=== PATIENT | female | born 1940 | race Caucasian/White ===

== ENCOUNTER 2018-08-02 12:51 | Inpatient (IN) | payer OTHER ==
[~2018-08-02] VITALS: Ht 160 cm; Wt 85.7 kg
[~2018-08-02 12:51] MED LIST: ADVAIR 250-501 EACH INH; ADVAIR 500-501 EACH INH; ALBUTEROL2.5 MG/32 IH; ASPIRIN EC81 M1 PO; ASPIRIN325 PO; ATENOLOL 50MG T50 M1 PO; ATIVAN0.5 MG PO; CENTRUM SILVER1 EAC4 PO; COZAAR 25 MG TA25 M2 PO; DEMADEX20 MG PO; DIGOXIN250 MCG PO; DUONEB 2.5-0.5 M3 ML INH; EFFIENT10 MG PO; ELIQUIS2.5 MG PO; FERROUS SULFAT325 MG PO; FLEXERIL PO; LASIX 40 MG TAB40 M2 PO; LEVAQUIN 500 M500 M2 PO; LIPITOR10 MG PO; LISINOPRIL5 MG PO; LOPRESSOR50 MG PO; MAXZIDE-25 MG1 EACH PO; METHOCARBAMOL500 M2 PO; MIRALAX17 GM PO; MUCINEX600 MG PO; MULTAQ 400 MG400 MG PO; POTASSIUM20 PO; PROAIR HFA8.5 GM INH; SIMVASTATIN20 MG PO; SINGULAIR 10 MG10 MG PO; SORINE 80 MG TA80 M1 PO; VITAMIN D5000 UNIT PO; XARELTO20 MG PO
[2018-08-02 12:52] VITALS: BP 182/63
--- NOTE | 2018-08-02 13:20 | NUR ---
PT BEING MOVED TO ROOM 23 TO GET STARTED.
[2018-08-02] MEDS ORDERED: ONDANSETRON HCL4 M2 PO (13:49)
[2018-08-02] MEDS ORDERED: SYMBICORT160 MCG/4. INH (13:50)
[2018-08-02 14:34] LABS: URINE BLOOD NEGATIVE (Negative); URINE CLARITY CLEAR; URINE COLOR YELLOW; URINE GLUCOSE-RANDOM* NEGATIVE (Negative); URINE KETONES NEGATIVE (Negative); URINE LEUKOCYTES-REFLEX NEGATIVE (Negative); URINE NITRITE-REFLEX NEGATIVE (Negative); URINE PROTEIN (DIPSTICK) NEGATIVE (Negative); URINE SPECIFIC GRAVITY >= 1.030 (1.005-1.035); URINE UROBILINOGEN 0.2 E.U./dl (0.2-1.0)
[2018-08-02 14:35] LABS: ICTOTEST (BILI CONFIRMATORY) Negative (Negative); URINE BILIRUBIN NEGATIVE (Negative)
[2018-08-02 15:22] LABS: HEMATOCRIT 44.8 % (37.0-47.0); HEMOGLOBIN 14.7 gm/dL (12.0-15.0); MCH 28.9 pg (26.0-34.0); MCHC 32.8 g/dL (28.0-37.0); MCV 88.1 fL (80.0-100.0); PLATELET COUNT 186 thou/uL (150-400); RBC 5.09 mil/uL (4.20-5.00); RDW 16.5 % (10.5-14.5); WBC 27.1 thou/uL (4.0-11.0)
[2018-08-02 15:31] LABS: ANION GAP 8 mmol/L (7-16); BUN 34 mg/dL (7-18); CALCIUM 9.8 mg/dL (8.5-10.1); CHLORIDE 105 mmol/L (98-107); CO2 28 mmol/L (21-32); CREATININE 1.3 mg/dL (0.6-1.0); GLUCOSE 120 mg/dL (74-106); POTASSIUM 4.1 mmol/L (3.5-5.1); SODIUM 141 mmol/L (136-145)
[2018-08-02 15:35] LABS: APTT 25.8 Seconds (24.5-32.8); PROTIME 10.6 Seconds (9.3-11.4)
[2018-08-02 15:41] LABS: ALBUMIN 3.7 g/dL (3.4-5.0); LIPASE 366 U/L (73-393); MAGNESIUM 2.2 mg/dL (1.8-2.4); SGOT 27 U/L (15-37); SGPT 26 U/L (30-65); TOTAL BILIRUBIN 0.6 mg/dL (<0.1-1.0); TOTAL PROTEIN 7.1 g/dL (6.4-8.2); TROPONIN-I <0.06 ng/mL (<0.06)
[2018-08-02 15:43] LABS: ABSOLUTE NEUTROPHILS 11.7 thou/uL (1.4-8.2); ATYPICAL LYMPHS 5 %; PLATELET ESTIMATE NORMAL
[2018-08-02] MEDS ORDERED: ALBUTEROL2.5 MG/31 INH (15:56)
[2018-08-02] MEDS ORDERED: SPIRIVA INH (15:56)
[2018-08-02] MEDS ORDERED: VITAMIN D5000 UNIT PO (15:56)
[2018-08-02] MEDS ORDERED: SYNTHROID50 MCG PO (15:57)
[2018-08-02] MEDS ORDERED: DIOVAN320 MG PO (16:02)
[2018-08-02] MEDS ORDERED: LEXAPRO20 MG PO (16:02)
[2018-08-02 16:12] VITALS: BP 132/69
[2018-08-02 16:52] VITALS: BP 136/70
--- NOTE | 2018-08-02 17:16 | EKG ---
[address] [address] ELECTROCARDIOGRAM REPORT Name: LIANG CAMARAN Room #: 453-P ADM IN M.R.#: [id number] Admission: 08/02/18 Attend Phys: Keshav Dwyer MD Discharge: Date of : 36 Report #: [id number] THIS REPORT FOR: //name// [facility] ED Test Date: 2018-08-02 Test Time: 13:33:11 Pat Name: LIANG CAMARA Department: Room: [facility] Gender: F Color Strainer: ROBIN : 1940 Requested By: Hernando Schulz Order Number: [id number] MD: Holden Colindres Measurements Intervals [place] Rate: 81 P: MS: QRS: 269 QRSD: 140 T: 71 QT: 434 QTc: 504 Interpretive Statements Atrial-sensed ventricular-paced complexes No further analysis attempted due to paced rhythm Compared to ECG 07/05/2015 09:11:19 Atrial fibrillation no longer present Electronically Signed On 08-02-2018 17:16:16 DRY HOUSE TENDER by Holden Colindres [email or web address] <ELECTRONICALLY SIGNED> By: Holden Colindres MD 08/02/18 1716 1333 1333 Holden Colindres MD /EPI
[2018-08-02 17:28] VITALS: BP 141/71
--- NOTE | 2018-08-02 18:14 | NUR ---
ADMITTED FROM ER UNDER 'S CARE. ADMITTED WITH NAUSEA, VOMITING, DIARRHEA. UNDER ISO FOR SPECIAL CONTACT. NO MORE N/V/D WHEN ARRIVED ON UNIT. AXOX4. FALL PRECAUTION INITIATED. IVF 125ML/HR ON CLEAR LIQUID DIET. WHEEZES AND ON BREATHING TX. SKIN INTACT. PACEMAKER. TELE MONITORING INITATED. DENIES ANY PAIN AT THIS POINT. UMBILICAL HERNIA. NO S/S ACUTE DISTRESS NOTED OR REPORTED AT THIS TIME. WILL CONT TO MONITOR FOR ANY CHANGES IN CONDITON.
[2018-08-03 04:00] VITALS: BP 131/65
--- NOTE | 2018-08-03 07:17 | NUR ---
PROGRESS PT SLEPT MOST OF NIGHT. IV FLUIDS INFUSING WITHOUT DIFFICULTY.TOLERATING CLEAR LIQUID DIET ATE ICELANDIC ICE AND JELLO AND A SMALL AMOUNT OF BROTH. CONTINUE TO MONITOR ADVANCE DIET TOLERATED AWAITING STOOL SAMPLE.
[2018-08-03 07:40] VITALS: BP 133/68
[2018-08-03 11:00] LABS: HEMATOCRIT 39.7 % (37.0-47.0); HEMOGLOBIN 12.9 gm/dL (12.0-15.0); MCH 28.5 pg (26.0-34.0); MCHC 32.6 g/dL (28.0-37.0); MCV 87.6 fL (80.0-100.0); RBC 4.53 mil/uL (4.20-5.00); RDW 15.8 % (10.5-14.5)
[2018-08-03 11:36] LABS: CALCIUM 8.6 mg/dL (8.5-10.1); CREATININE 1.3 mg/dL (0.6-1.0); POTASSIUM 3.9 mmol/L (3.5-5.1); TOTAL BILIRUBIN 0.6 mg/dL (<0.1-1.0); TOTAL PROTEIN 5.8 g/dL (6.4-8.2)
[2018-08-03 12:25] VITALS: BP 133/68
--- NOTE | 2018-08-03 13:02 | NUR ---
pt stable throughout shift. pt discharged home. pt left unit via wheelchair to private vehicle.
== END 2018-08-03 13:57 | disposition home or self-care (01) | DRG 683 ==
LOC: ER 12:51 → 4W 15:50 → EROBS 15:50 → 4W 16:51 → ENTRNSPT 08-03 12:44 → EDTRNSPTSTS 08-03 12:46 → 4W 08-03 13:57
PROVIDERS: Emergency Medicine; ADMIT Family Medicine
DX: N17.9 Acute kidney failure, unspecified (principal); C91.10 Chronic lymphocytic leukemia of B-cell type not having achieved remission; K52.9 Noninfective gastroenteritis and colitis, unspecified; N18.9 Chronic kidney disease, unspecified; I12.9 Hypertensive chronic kidney disease with stage 1 through stage 4 chronic kidney disease, or unspecified chronic kidney disease; E78.5 Hyperlipidemia, unspecified; J44.9 Chronic obstructive pulmonary disease, unspecified; I48.91 Unspecified atrial fibrillation; I25.10 Atherosclerotic heart disease of native coronary artery without angina pectoris; J45.909 Unspecified asthma, uncomplicated; F41.9 Anxiety disorder, unspecified; E86.0 Dehydration; W18.30XA Fall on same level, unspecified, initial encounter; Y92.89 Other specified places as the place of occurrence of the external cause; Y99.8 Other external cause status; Z88.0 Allergy status to penicillin; Z88.2 Allergy status to sulfonamides; Z88.8 Allergy status to other drugs, medicaments and biological substances; Z90.49 Acquired absence of other specified parts of digestive tract; Y93.89 Activity, other specified; Z88.6 Allergy status to analgesic agent; Z79.51 Long term (current) use of inhaled steroids; Z87.891 Personal history of nicotine dependence; Z79.899 Other long term (current) drug therapy; Z88.1 Allergy status to other antibiotic agents; Z91.040 Latex allergy status
CPT/HCPCS: 10045

== ENCOUNTER → 2018-10-10 | Outpatient (CLI) | payer OTHER ==
[~2018-10-10] MED LIST changes: +ALBUTEROL2.5 MG/31 INH; +DIOVAN320 MG PO; +LEXAPRO20 MG PO; +ONDANSETRON HCL4 M2 PO; +SPIRIVA INH; +SYMBICORT160 MCG/4. INH; +SYNTHROID50 MCG PO
== END ==
LOC: RAD 15:26
DX: J44.9 Chronic obstructive pulmonary disease, unspecified (principal); G47.19 Other hypersomnia; R53.83 Other fatigue; R06.83 Snoring; Z87.891 Personal history of nicotine dependence; Z77.120 Contact with and (suspected) exposure to mold (toxic); Z88.8 Allergy status to other drugs, medicaments and biological substances; Z88.1 Allergy status to other antibiotic agents; Z88.2 Allergy status to sulfonamides; Z91.011 Allergy to milk products; Z88.0 Allergy status to penicillin

== ENCOUNTER 2018-11-04 07:12 | Inpatient (IN) | payer OTHER ==
[2018-11-04] VITALS (14 sets, daily range): BP systolic 145–205; BP diastolic 50–114
[~2018-11-04] VITALS: Ht 162.6 cm; Wt 81.7 kg
[2018-11-04 07:45] LABS: BE(vivo) -3.9 mmol/L (-2 to +3); HCO3 20.8 mmol/L (22.0-26.0); PCO2 36.9 mmHg (35.0-45.0); PO2 80.3 mmHg (80.0-100.0); pH 7.368 (7.360-7.450); sO2 95.6 % (92.0-98.0)
[2018-11-04 09:56] LABS: HEMATOCRIT 42.6 % (37.0-47.0); HEMOGLOBIN 13.6 gm/dL (12.0-15.0); MCH 28.2 pg (26.0-34.0); MCV 88.2 fL (80.0-100.0); PLATELET COUNT 203 thou/uL (150-400); RBC 4.82 mil/uL (4.20-5.00); RDW 15.3 % (10.5-14.5); WBC 17.1 thou/uL (4.0-11.0)
[2018-11-04 10:04] LABS: ANION GAP 9 mmol/L (7-16); BUN 18 mg/dL (7-18); CALCIUM 9.4 mg/dL (8.5-10.1); CHLORIDE 101 mmol/L (98-107); CO2 28 mmol/L (21-32); CREATININE 1.4 mg/dL (0.6-1.0); GLUCOSE 128 mg/dL (74-106); POTASSIUM 4.7 mmol/L (3.5-5.1); SODIUM 138 mmol/L (136-145)
[2018-11-04 10:12] LABS: TROPONIN-I <0.06 ng/mL (<0.06)
[2018-11-04 10:54] LABS: ABSOLUTE NEUTROPHILS 10.9 thou/uL (1.4-8.2); PLATELET ESTIMATE NORMAL
[2018-11-04 20:31] LABS: BE(vivo) 2.8 mmol/L (-2 to +3); HCO3 28.1 mmol/L (22.0-26.0); PCO2 45.7 mmHg (35.0-45.0); PO2 139.6 mmHg (80.0-100.0); pH 7.406 (7.360-7.450); sO2 98.8 % (92.0-98.0)
[2018-11-05] VITALS (24 sets, daily range): BP systolic 75–189; BP diastolic 52–93
[2018-11-05 10:03] LABS: MCH 28.3 pg (26.0-34.0); MCHC 32.5 g/dL (28.0-37.0); RBC 4.59 mil/uL (4.20-5.00); RDW 15.3 % (10.5-14.5); WBC 15.8 thou/uL (4.0-11.0)
[2018-11-05 10:15] LABS: CALCIUM 8.8 mg/dL (8.5-10.1); CREATININE 1.6 mg/dL (0.6-1.0); POTASSIUM 3.9 mmol/L (3.5-5.1)
[2018-11-06] VITALS (16 sets, daily range): BP systolic 106–164; BP diastolic 39–78
[2018-11-06 05:18] LABS: HEMATOCRIT 39.6 % (37.0-47.0); MCH 28.6 pg (26.0-34.0); MCHC 32.8 g/dL (28.0-37.0); MCV 87.1 fL (80.0-100.0); RBC 4.54 mil/uL (4.20-5.00); RDW 15.8 % (10.5-14.5)
[2018-11-06 05:28] LABS: CALCIUM 8.7 mg/dL (8.5-10.1); CREATININE 1.5 mg/dL (0.6-1.0); POTASSIUM 4.4 mmol/L (3.5-5.1)
[2018-11-06 08:18] LABS: BE(vivo) 8.8 mmol/L (-2 to +3); PCO2 48.9 mmHg (35.0-45.0); PO2 86.2 mmHg (80.0-100.0); sO2 96.9 % (92.0-98.0)
--- NOTE | 2018-11-06 22:27 | EKG ---
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 : 1940 Requested By: Abdias Tijerina Order Number: [id number] MD: Holden Colindres Measurements Intervals [place] Rate: 80 P: 0 GA: 44 QRS: -86 QRSD: 153 T: 56 QT: 434 QTc: 501 Interpretive Statements Sinus rhythm Short GA interval RBBB and LAFB Electronically Signed On 11-06-2018 22:27:18 CDT by Holden Colindres [email or web address] ��������������������������������������������� <ELECTRONICALLY SIGNED> ���������������������������������������� By: Holden Colindres MD ��������������������������������������������� 11/06/18 2227 0728 07 Holden Colindres MD /MYRON
[2018-11-07 01:00] VITALS: BP 153/75
[2018-11-07 04:00] VITALS: BP 150/68
[2018-11-07 04:13] LABS: CALCIUM 8.2 mg/dL (8.5-10.1); CREATININE 1.6 mg/dL (0.6-1.0); POTASSIUM 4.4 mmol/L (3.5-5.1)
[2018-11-07 08:00] VITALS: BP 150/66
[2018-11-07 12:20] VITALS: BP 139/73
[2018-11-07 16:00] VITALS: BP 138/71
[2018-11-07 20:00] VITALS: BP 136/78
[2018-11-08 04:00] VITALS: BP 178/82
[2018-11-08 08:19] VITALS: BP 127/83
[2018-11-08 15:16] VITALS: BP 126/44
[2018-11-08 19:49] VITALS: BP 151/85
[2018-11-09 04:47] VITALS: BP 162/81
[2018-11-09] MEDS ORDERED: IPRAT-ALBUT 0.5-3 ML INH (07:54)
[2018-11-09] MEDS ORDERED: PREDNISONE 20 M20 M1 PO (07:56)
[2018-11-09 07:58] VITALS: BP 191/79
[2018-11-09] MEDS ORDERED: LEVAQUIN 500 M500 M3 PO (07:59)
[2018-11-09 09:57] VITALS: BP 191/79
[2018-11-09 11:09] VITALS: BP 172/72
[2018-11-09 12:50] VITALS: BP 191/79
== END 2018-11-09 13:23 | disposition home health service (06) | DRG 871 ==
LOC: ER 07:12 → 2N 10:24 → EROBS 10:24 → ICU 12:34 → 2N 11-06 19:03
PROVIDERS: Emergency Medicine; Pediatrics; ADMIT Family Medicine
PROC: 5A09357 Assistance with Respiratory Ventilation, Less than 24 Consecutive Hours, Continuous Positive Airway Pressure (ICD-10-PCS; principal; 2018-11-04)
PROC: 02HV33Z Insertion of Infusion Device into Superior Vena Cava, Percutaneous Approach (ICD-10-PCS; principal; 2018-11-04)
PROC: 5A09357 Assistance with Respiratory Ventilation, Less than 24 Consecutive Hours, Continuous Positive Airway Pressure (ICD-10-PCS; 2018-11-05)
PROC: 5A09357 Assistance with Respiratory Ventilation, Less than 24 Consecutive Hours, Continuous Positive Airway Pressure (ICD-10-PCS; 2018-11-06)
PROC: 5A09357 Assistance with Respiratory Ventilation, Less than 24 Consecutive Hours, Continuous Positive Airway Pressure (ICD-10-PCS; 2018-11-07)
PROC: 5A09357 Assistance with Respiratory Ventilation, Less than 24 Consecutive Hours, Continuous Positive Airway Pressure (ICD-10-PCS; 2018-11-08)
PROC: 5A09357 Assistance with Respiratory Ventilation, Less than 24 Consecutive Hours, Continuous Positive Airway Pressure (ICD-10-PCS; 2018-11-09)
DX: A41.9 Sepsis, unspecified organism (principal); J18.9 Pneumonia, unspecified organism; J96.21 Acute and chronic respiratory failure with hypoxia; J96.22 Acute and chronic respiratory failure with hypercapnia; J44.0 Chronic obstructive pulmonary disease with (acute) lower respiratory infection; J44.1 Chronic obstructive pulmonary disease with (acute) exacerbation; N17.9 Acute kidney failure, unspecified; J45.901 Unspecified asthma with (acute) exacerbation; I13.0 Hypertensive heart and chronic kidney disease with heart failure and stage 1 through stage 4 chronic kidney disease, or unspecified chronic kidney disease; E66.9 Obesity, unspecified; Z79.84 Long term (current) use of oral hypoglycemic drugs; I48.91 Unspecified atrial fibrillation; I25.10 Atherosclerotic heart disease of native coronary artery without angina pectoris; F41.9 Anxiety disorder, unspecified; N18.9 Chronic kidney disease, unspecified; F31.9 Bipolar disorder, unspecified; E78.00 Pure hypercholesterolemia, unspecified; E11.22 Type 2 diabetes mellitus with diabetic chronic kidney disease; E78.5 Hyperlipidemia, unspecified; I11.0 Hypertensive heart disease with heart failure; Z95.5 Presence of coronary angioplasty implant and graft; Z85.72 Personal history of non-Hodgkin lymphomas; Z90.49 Acquired absence of other specified parts of digestive tract; Z98.41 Cataract extraction status, right eye; Z98.42 Cataract extraction status, left eye; Z88.0 Allergy status to penicillin; Z88.2 Allergy status to sulfonamides; Z88.8 Allergy status to other drugs, medicaments and biological substances; Z88.1 Allergy status to other antibiotic agents; Z91.040 Latex allergy status; Z85.6 Personal history of leukemia; Z87.891 Personal history of nicotine dependence; Z79.01 Long term (current) use of anticoagulants; Z68.30 Body mass index [BMI] 30.0-30.9, adult
CPT/HCPCS: 10078; 10081

== ENCOUNTER → 2018-11-11 | Outpatient (CLI) | payer OTHER ==
[~2018-11-11] MED LIST changes: +IPRAT-ALBUT 0.5-3 ML INH; +LEVAQUIN 500 M500 M3 PO; +PREDNISONE 20 M20 M1 PO
--- NOTE | 2018-11-14 11:01 | SLE ---
[facility] [place] [address] POLYSOMNOGRAPHY STUDY Name: LIANG CAMARA Room #: REG [facility]#: [id number] Admission: 11/11/18 ������������������ Attend Phys: Ayush Partida MD Discharge: ������������������ Date of : 36 Report #: [id number] THIS REPORT FOR: //name// CC: Ayush Thomas MD DATE OF SERVICE: 11/11/2018 ATTENDING PHYSICIAN: Dr. Roderick Thomas. The patient is 78 years old who weighs 180 pounds with a BMI of 30.9. The patient's Ulysses score was 11. The patient underwent diagnostic sleep study performed at [facility]. During the night study, the patient spent 462 minutes in bed and slept for 243 minutes with a low sleep efficiency of 52.6%. The patient has chronic back pain, which may account for poor sleep efficiency. Sleep latency was 35.3 minutes with an absent REM sleep. Overall, sleep architecture showed increased stage 1 and stage 2 sleep with absent N3 sleep and absent REM sleep. During the night study, the patient had no apneas and 8 hypopneas. The patient's apnea-hypopnea index for the entire night was 2 per hour. REM sleep was not observed and supine index was 4.8 per hour. EKG monitoring revealed a paced rhythm. Average heart rate 85 beats per minute. No sustained arrhythmias observed. PLMS were seen at an index of 35 per hour and 3.9 per hour caused EEG arousals. Nocturnal oximetry study revealed an average oxygen saturation of 89% with the lowest of 85%. 107 minutes were spent in oxygen saturation of less than 89%. The pattern was suggesting hypoventilation. Due to low AHI, the patient did not meet the split night criteria for CPAP initiation. IMPRESSION: 1. No clinically significant sleep disordered breathing. The patient's AHI for the entire night was 2 per hour. 2. 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 If this is a chronic condition then it can account for the patient's subjective hypersomnia. 3. Abnormal nocturnal oximetry study suggesting hypoventilation. 4. Abnormal EKG with a paced rhythm. [facility] [address] [place] [address] POLYSOMNOGRAPHY STUDY Name: LIANG CAMARA Room #: REG [facility]#: [id number] Admission: 11/11/18 ������������������ Attend Phys: Ayush Partida MD Discharge: ������������������ Date of : 36 Report #: [id number] RECOMMENDATIONS: 1. The patient did not meet the criteria for CPAP initiation. 2. The patient's insomnia should be further evaluated and treated according to the etiology. 3. Consider supplemental oxygen at 1 liter or do an outpatient nocturnal oximetry study to assess for nocturnal use of oxygen. 4. Weight loss is advised to the ideal body weight. 5. Caution regarding driving until the patient's hypersomnia is resolved with the above recommendations. ��������������������������������������������� <ELECTRONICALLY SIGNED> ���������������������������������������� By: Ayush Partida MD ��������������������������������������������� 11/14/18 1101 1830 2137 Ayush Partida MD /nt
== END ==
LOC: SLEEPLAB 10:08
DX: G47.33 Obstructive sleep apnea (adult) (pediatric) (principal); R94.31 Abnormal electrocardiogram [ECG] [EKG]; G47.00 Insomnia, unspecified; I10 Essential (primary) hypertension; E11.9 Type 2 diabetes mellitus without complications; J44.9 Chronic obstructive pulmonary disease, unspecified; I48.91 Unspecified atrial fibrillation; E78.5 Hyperlipidemia, unspecified; Z87.891 Personal history of nicotine dependence; Z68.30 Body mass index [BMI] 30.0-30.9, adult

== ENCOUNTER → 2019-01-26 | Outpatient (CLI) | payer OTHER | LOC: RAD 07:37 | DX: J44.9 Chronic obstructive pulmonary disease, unspecified (principal); I51.7 Cardiomegaly; M47.814 Spondylosis without myelopathy or radiculopathy, thoracic region; M48.54XA Collapsed vertebra, not elsewhere classified, thoracic region, initial encounter for fracture ==

== ENCOUNTER → 2019-03-03 | Outpatient (CLI) | payer OTHER ==
--- NOTE | 2019-03-03 12:36 | 2DMMODE ---
[facility] [place] [facility] [place] [address] 2 D/M-MODE ECHOCARDIOGRAM Name: LIANG CAMAAR Room #: REG [facility]#: [id number] ������������� Admission: 03/03/19 ������������� Attend Phys: Holden Colindres Discharge: ��� ������������� ��� Date of : 36 Date of Service: 03/03/19 1236 �� Report #: [id number] �������� ��������������������������������������������[id number] THIS REPORT FOR: //name// APPROVED REPORT Study performed: 03/03/2019 10:00:41 EXAM: Comprehensive 2D, Doppler, and color-flow Echocardiogram Patient Location: Out-Patient Status: routine BSA: 1.90 HR: 82 bpm BP: 154/74 mmHg Rhythm: Atrial Fibrillation Other Information Study Quality: Adequate Technically limited study due to COPD, obesity. Indications Short of breath. Hx: Afib, pacemaker, CAD, stent. 2D Dimensions RVDd: 32.54 mm IVSd: 12.15 (7-11mm) LVOT Diam: 19.36 (18-24mm) LVDd: 48.53 mm PWd: 12.11 (7-11mm) Ascending Ao: 32.81 (22-36mm) LVDs: 36.32 (25-40mm) Aortic Root: 33.05 mm Volumes Left Atrial Volume (Systole) Single Plane 4CH: 63.65 mL Single Plane 2CH: 71.60 mL LA ESV Index: 40.00 mL/m2 Aortic Valve AoV Peak Valentin.: 1.75 m/s AO Peak Gr.: 12.18 mmHg LVOT Max P.15 mmHg AO Mean Gr.: 7.59 mmHg AO V2 Mean: 1.33 m/s LVOT Max V: 1.02 m/s AO V2 VTI: 33.11 cm NORMA Vmax: 1.72 cm2 Mitral Valve [facility] [place] [facility] [place] [address] 2 D/M-MODE ECHOCARDIOGRAM Name: LIANG CAMARAN Room #: REG [facility]#: [id number] ������������� Admission: 03/03/19 ������������� Attend Phys: Holden Colindres Discharge: ��� ������������� ��� Date of : 36 Date of Service: 03/03/19 1236 �� Report #: [id number] �������� ��������������������������������������������[id number] MV Decel. Time: 229.00 ms MV E Max Valentin.: 1.33 m/s Pulmonary Valve PV Peak Valentin.: 0.87 m/s PV Peak Gr.: 3.03 mmHg Tricuspid Valve TR Peak Valentin.: 2.76 m/s RAP Estimate: 5.00 mmHg TR Peak Gr.: 30.44 mmHg PA Pressure: 35.00 mmHg Left Ventricle The left ventricle is normal size. There is normal LV segmental wall motion. Mild concentric left ventricular hypertrophy. Left ventricular systolic function is normal. LVEF is 60-65%. This study is not technically sufficient to allow evaluation of the LV diastolic function due to atrial fibrillation. Right Ventricle The right ventricle is normal size. Right ventricle is mildly hypokinetic. Atria Left atrium is moderately dilated. The right atrium size is normal. Aortic Valve Aortic valve is trileaflet, mildly sclerotic. No aortic regurgitation is present. There is no aortic valvular stenosis. Mitral Valve Moderate mitral annular calcification. Mildly calcified leaflets Mild mitral regurgitation. No evidence of mitral valve stenosis. Tricuspid Valve The tricuspid valve is normal in structure. Moderate tricuspid regurgitation. Estimated PAP is 35mmHg. Pulmonic Valve The pulmonary valve is normal in structure. Mild pulmonic regurgitation. Great Vessels The aortic root is normal in size. The ascending aorta is normal in size. IVC is normal in size and collapses >50% with [facility] [place] [facility] [address] [place] [address] 2 D/M-MODE ECHOCARDIOGRAM Name: LIANG CAMARA [facility] [id number] ������������� Admission: 03/03/19 ������������� Attend Phys: Holden Colindres Discharge: ��� ������������� ��� Date of : 36 Date of Service: 03/03/19 1236 �� Report #: [id number] �������� ��������������������������������������������[id number] inspiration. Pericardium There is no pericardial effusion. <Conclusion> Left ventricular systolic function is normal. There is normal LV segmental wall motion. LVEF is 60-65%. Left atrium is moderately dilated. Aortic valve is trileaflet, mildly sclerotic. No aortic regurgitation or stenosis Moderate mitral annular calcification. Mildly calcified leaflets. Mild mitral regurgitation. Moderate tricuspid regurgitation. Estimated pulmonary artery pressure of 35mmHg. There is no pericardial effusion. ��������������������������������������������� <ELECTRONICALLY SIGNED> ���������������������������������������� By: Narciso Antunez MD, [facility] ��������������������������������������������� 03/03/19 1236 1236 1236 Narciso Antunez MD, FAC /INF
== END ==
LOC: CV 09:39 → EDSTATUS 15:31
DX: I08.8 Other rheumatic multiple valve diseases (principal); I48.91 Unspecified atrial fibrillation; I25.10 Atherosclerotic heart disease of native coronary artery without angina pectoris; Z88.8 Allergy status to other drugs, medicaments and biological substances; Z88.0 Allergy status to penicillin; Z88.2 Allergy status to sulfonamides; Z95.5 Presence of coronary angioplasty implant and graft; Z95.0 Presence of cardiac pacemaker

== ENCOUNTER 2019-07-09 07:55 | Inpatient (IN) | payer OTHER ==
[2019-07-09] VITALS (7 sets, daily range): BP systolic 120–184; BP diastolic 50–77
[~2019-07-09] VITALS: Ht 162.6 cm; Wt 91.6 kg
[2019-07-09 08:33] LABS: HEMATOCRIT 37.1 % (37.0-47.0); HEMOGLOBIN 11.8 gm/dL (12.0-15.0); MCH 27.6 pg (26.0-34.0); MCHC 31.8 g/dL (28.0-37.0); MCV 86.6 fL (80.0-100.0); PLATELET COUNT 235 thou/uL (150-400); RBC 4.29 mil/uL (4.20-5.00); RDW 16.1 % (10.5-14.5); WBC 21.9 thou/uL (4.0-11.0)
[2019-07-09 08:48] LABS: ABSOLUTE NEUTROPHILS 12.3 thou/uL (1.4-8.2); BURR CELLS OCCASIONAL; PLATELET ESTIMATE NORMAL
[2019-07-09 08:49] LABS: ANISOCYTOSIS 1+
[2019-07-09 08:55] LABS: ANION GAP 4 mmol/L (7-16); BUN 21 mg/dL (7-18); CALCIUM 10.2 mg/dL (8.5-10.1); CHLORIDE 99 mmol/L (98-107); CO2 31 mmol/L (21-32); CREATININE 1.1 mg/dL (0.6-1.0); GLUCOSE 88 mg/dL (74-106); POTASSIUM 4.5 mmol/L (3.5-5.1); SODIUM 134 mmol/L (136-145)
[2019-07-09 09:05] LABS: ALBUMIN 3.4 g/dL (3.4-5.0); DIRECT BILIRUBIN 0.2 mg/dL (<0.1-0.2); SGOT 19 U/L (15-37); SGPT 30 U/L (30-65); TOTAL BILIRUBIN 0.8 mg/dL (<0.1-1.0); TOTAL PROTEIN 6.4 g/dL (6.4-8.2); TROPONIN-I <0.06 ng/mL (<0.06)
[2019-07-09 10:05] LABS: URINE BILIRUBIN NEGATIVE (Negative); URINE BLOOD NEGATIVE (Negative); URINE CLARITY CLEAR; URINE COLOR YELLOW; URINE GLUCOSE-RANDOM* NEGATIVE (Negative); URINE KETONES NEGATIVE (Negative); URINE LEUKOCYTES-REFLEX TRACE (Negative); URINE NITRITE-REFLEX NEGATIVE (Negative); URINE PROTEIN (DIPSTICK) NEGATIVE (Negative); URINE SPECIFIC GRAVITY 1.015 (1.005-1.035); URINE UROBILINOGEN 0.2 E.U./dl (0.2-1.0)
--- NOTE | 2019-07-09 18:23 | NUR ---
PT admitted from ER for COPD exacerbation, pt is on o2 2L/MIN/NC, PT has SOB with activities, pt's vs are stable, pt gets up to chair for dinner , pt denies pain at this time.
--- NOTE | 2019-07-10 00:53 | NUR ---
PATIENT IS ALERT AND ORIENTED. PATIENT IS UP TIMES ONE. PATIENT IS SBA TO BSC. PATIENT IS ON 2LNC. PATIENT HAS A DOSS FOR I&O. PATIENT DENIES PAIN. PATIENT STATES BREATHING INPROVED. PATIENT IS RESTING COMFORTABLY IN BED. WCM.
[2019-07-10 03:45] VITALS: BP 154/62
[2019-07-10 07:24] VITALS: BP 140/91
[2019-07-10 09:54] LABS: HEMOGLOBIN 11.8 gm/dL (12.0-15.0); MCH 27.6 pg (26.0-34.0); MCHC 31.1 g/dL (28.0-37.0); MCV 88.7 fL (80.0-100.0); RBC 4.29 mil/uL (4.20-5.00); RDW 15.9 % (10.5-14.5); WBC 21.1 thou/uL (4.0-11.0)
[2019-07-10 10:09] LABS: CALCIUM 9.5 mg/dL (8.5-10.1); CREATININE 1.4 mg/dL (0.6-1.0); POTASSIUM 4.6 mmol/L (3.5-5.1)
--- NOTE | 2019-07-10 11:17 | NUR ---
pt daughter visiting. pt stated having a BM AND FEELING MUCH BETTER. PT ON 2L OF OXYGEN. ALERT AND ORIENTED. CALL LIGHT IN REACH. DENIES ANY NEEDS. wILL CONTINUE TO MONITOR
--- NOTE | 2019-07-10 14:53 | EKG ---
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 RBBB and LAFB Compared to ECG 11/04/2018 07:28:17 Electronically Signed On 07-10-2019 14:52:49 AS400 ADMINISTRATOR by Holden Colindres [email or web address] <ELECTRONICALLY SIGNED> By: Holedn Colindres MD 07/10/19 1452 8 8 Holden Colindres MD /MYRON
--- NOTE | 2019-07-10 14:58 | EKG ---
[address] [address] ELECTROCARDIOGRAM REPORT Name: LIANG CAMARA Room #: 349-I ADM IN M.R.#: [id number] Admission: 07/09/19 Attend Phys: Keshav Dwyer MD Discharge: Date of : 36 Report #: [id number] THIS REPORT FOR: //name// [facility] ED Test Date: 2019-07-09 Test Time: 09:03:57 Pat Name: LIANG CAMARA Department: Room: 349 I Gender: F Mercerizer: IN : 1940 Requested By: Keshav Dwyer Order Number: [id number] MD: Holden Colindres Measurements Intervals [place] Rate: 80 P: AL: QRS: -90 QRSD: 127 T: 65 QT: 406 QTc: 469 Interpretive Statements Afib/flut Compared to ECG 11/04/2018 07:28:17 Electronically Signed On 07-10-2019 14:57:45 EQUIPMENT COORDINATOR by Holden Colindres [email or web address] <ELECTRONICALLY SIGNED> By: Holden Colindres MD 07/10/19 1457 2 2 Holden Colindres MD /MYRON
[2019-07-10 17:44] VITALS: BP 114/69
[2019-07-10 20:44] VITALS: BP 120/62
[2019-07-10 22:13] VITALS: BP 115/72
--- NOTE | 2019-07-11 03:12 | NUR ---
PATIENT IS ALERT AND ORIENTED. PATIENT IS UP TIMES ONE TO BSC. PATIENT DENIES PAIN. PATIENT IS ON 2LNC. PATIENT IS V-PACED ON TELE. PATIENTS LUNGS ARE WHEEZY AND TIGHT. PATIENT CAN BE ANXIOUS AT TIMES. PATIENT IS RESTING COMFORTABLY IN BED. WCM. PATIENT IS PROGRESSING TO GOALS.
[2019-07-11 03:53] VITALS: BP 152/86
[2019-07-11 07:17] VITALS: BP 151/72
[2019-07-11 15:27] VITALS: BP 130/82
--- NOTE | 2019-07-11 15:36 | NUR ---
INITIAL ASSESSMENT: SW reviewed chart and spoke with nursing. Pt was admitted from home due to COPD exacerbation. Pt is on IV steroids/IV abx. SW met with pt at bedside. Introduced role of SW. Pt is alert/orientated x 4. Pt reports she lives at home with her daughter, who is an RN at [employer] on [address]. Prior to admission, pt was using a cane or walker. No steps that pt has to navigate in the home. Pt has home O2 in place through [facility]. Pt is normally on 2L continuously. Pt has used [facility] in the past, and would like to use them again. Pt's PCP is Dr. Dwyer. Anticipate pt will be ready to d/c home soon. senior media planner to fax referral to [facility]. SW is following to assist as needed with discharge planning.
--- NOTE | 2019-07-11 16:05 | NUR ---
DISCHARGE PLANNING. PATIENT ANTICIPATED TO DISCHARGE TO HOME IN 1-2 DAYS. HOME HEALTH RECOMMENDED AT DISCHARGE. PATIENT REFERRAL FAXED TO [facility]. CALL PLACED TO [facility] INTAKE TO NOTIFY.
--- NOTE | 2019-07-11 17:46 | NUR ---
ASSUMED PATIENT CARE AT 0700. TOLERATED ON 2L/NC. SOB WITH EXERTIOM. STABDBY AMBULATED IN ROOM. PROGRESSING TOWARDS POC GOALS.
[2019-07-11 19:24] VITALS: BP 111/80
--- NOTE | 2019-07-12 03:25 | NUR ---
Received pt. on 2L/NC then RT titrated to 3L due to shortness of breath. She gets very short of breath and wheezy with minimal exertion. Requested anxiety med , lorazepam PRN given with some relief. She slept in the chair all night stating it's easier for her to breathe that way. Dressing intact on skin tears. V Paced per tele. Afebrile. Will continue to monitor.
[2019-07-12 04:08] VITALS: BP 139/94
[2019-07-12 06:45] LABS: CALCIUM 8.8 mg/dL (8.5-10.1); CREATININE 1.1 mg/dL (0.6-1.0); POTASSIUM 4.3 mmol/L (3.5-5.1)
[2019-07-12 08:47] VITALS: BP 119/76
[2019-07-12 10:10] VITALS: BP 119/76
--- NOTE | 2019-07-12 10:55 | NUR ---
ASSUMED PATIENT CARE AT 0700. A/O X4. ANXIOUS WITH LABORED BREATHING. GIVEN ATIVAN 2 HOURS EARLY PER PATIENT AND FAMILY NEED FOR DISCHARGE. WILL DC TO [facility] SOON.
--- NOTE | 2019-07-12 14:22 | NUR ---
DISCHARGE NOTE: SW reviewed chart and spoke with nursing and attending physician. Pt is medically stable for discharge home today. Orders written for HH. landscape architect and planner faxed discharge orders/summary to [facility]. Pt has home O2 in place. Pt's family provided transportation home. No additional SW needs identified at this time, but is available to assist should needs arise.
== END 2019-07-12 11:57 | disposition home health service (06) | DRG 189 ==
LOC: ER 07:55 → EROBS 09:41 → 3W 09:41 → ENTRNSPT 07-12 11:37 → 3W 07-12 11:57 → CMPTRNSPT 07-12 11:58
PROVIDERS: Emergency Medicine; ADMIT Family Medicine
DX: J96.21 Acute and chronic respiratory failure with hypoxia (principal); N17.0 Acute kidney failure with tubular necrosis; J44.1 Chronic obstructive pulmonary disease with (acute) exacerbation; T83.83XA Hemorrhage due to genitourinary prosthetic devices, implants and grafts, initial encounter; I48.21 Permanent atrial fibrillation; E78.00 Pure hypercholesterolemia, unspecified; M25.511 Pain in right shoulder; E78.5 Hyperlipidemia, unspecified; F41.9 Anxiety disorder, unspecified; F31.9 Bipolar disorder, unspecified; K59.00 Constipation, unspecified; Y83.8 Other surgical procedures as the cause of abnormal reaction of the patient, or of later complication, without mention of misadventure at the time of the procedure; E11.22 Type 2 diabetes mellitus with diabetic chronic kidney disease; I12.9 Hypertensive chronic kidney disease with stage 1 through stage 4 chronic kidney disease, or unspecified chronic kidney disease; N18.9 Chronic kidney disease, unspecified; J96.22 Acute and chronic respiratory failure with hypercapnia; C50.919 Malignant neoplasm of unspecified site of unspecified female breast; C55 Malignant neoplasm of uterus, part unspecified; Y92.89 Other specified places as the place of occurrence of the external cause; Z82.49 Family history of ischemic heart disease and other diseases of the circulatory system; Z79.01 Long term (current) use of anticoagulants; Z80.9 Family history of malignant neoplasm, unspecified; Z85.6 Personal history of leukemia; Z95.5 Presence of coronary angioplasty implant and graft; Z98.42 Cataract extraction status, left eye; Z98.41 Cataract extraction status, right eye; Z90.89 Acquired absence of other organs; Z85.72 Personal history of non-Hodgkin lymphomas; Z79.899 Other long term (current) drug therapy; Z88.0 Allergy status to penicillin; Z88.2 Allergy status to sulfonamides; Z88.8 Allergy status to other drugs, medicaments and biological substances; Z88.1 Allergy status to other antibiotic agents; Z91.040 Latex allergy status; Z87.891 Personal history of nicotine dependence; J96.02 Acute respiratory failure with hypercapnia
CPT/HCPCS: 10879

== ENCOUNTER → 2019-08-25 | Outpatient (CLI) | payer OTHER ==
--- NOTE | 2019-08-25 13:29 | 2DMMODE ---
[address] [address] 2 D/M-MODE ECHOCARDIOGRAM Name: LIANG CAMARA Room #: REG [facility]#: [id number] Admission: 08/25/19 Attend Phys: Keshav Dwyer MD Discharge: Date of : 36 Report #: [id number] THIS REPORT FOR: cc: Keshav Dwyer MD, Neal A. MD Lammoglia, Francisco J. MD ~ APPROVED REPORT Study performed: 08/25/2019 11:28:24 EXAM: Comprehensive 2D, Doppler, and color-flow Echocardiogram Patient Location: Out-Patient Room #: Echo lab 2 Status: routine BSA: 1.99 HR: 80 bpm BP: 122/82 mmHg Rhythm: Pacemaker Other Information Study Quality: Adequate Indications Pacemaker Hypertension/HDD Edema 2D Dimensions IVC: 22.00 mm Volumes Left Atrial Volume (Systole) LA ESV Index: 74.00 mL/m2 Tricuspid Valve PA Pressure: 42.00 mmHg Left Ventricle The left ventricle is normal size. There is normal left ventricular wall thickness. The left ventricular systolic function is normal. The left ventricular ejection fraction is within the normal range. LVEF is 50-55%. This study is not technically sufficient to allow evaluation of the LV diastolic function. [address] [address] 2 D/M-MODE ECHOCARDIOGRAM Name: LIANG CAMARA Room #: REG [facility]#: [id number] Admission: 08/25/19 Attend Phys: Keshav Dwyer, Discharge: Date of : 36 Report #: [id number] Right Ventricle The right ventricle is normal size. The right ventricular systolic function is normal. Pacemaker lead is present in the right ventricle. Atria Left atrium is dilated. Right atrium is dilated. Aortic Valve The aortic valve is normal in structure. The Aortic valve is sclerotic. No aortic regurgitation is present. There is no aortic valvular stenosis. Mitral Valve The mitral valve is normal in structure. Focal echodensity at the base of the posterior leaflet compatible with mitral annular calcification Mild to moderate mitral regurgitation. No evidence of mitral valve stenosis. Tricuspid Valve The tricuspid valve is normal in structure. There is mild tricuspid regurgitation. Estimated PAP 42 mmHg. There is moderate pulmonary hypertension. Pulmonic Valve The pulmonary valve is normal in structure. Trace pulmonic regurgitation. Great Vessels The aortic root is normal in size. IVC is dilated and collapses >50% with inspiration. Pericardium There is no pericardial effusion. <Conclusion> The left ventricle is normal size. LVEF is 50-55%. The right ventricular systolic function is normal. Pacemaker lead is present in the right ventricle. Left atrium is dilated. Right atrium is dilated. The aortic valve is normal in structure. The Aortic valve is sclerotic. The mitral valve is normal in structure. Focal echodensity at the base of the posterior leaflet compatible with mitral annular [facility] [address] [place] [address] 2 D/M-MODE ECHOCARDIOGRAM Name: LIANG CAMARA Room #: REG [facility].#: [id number] Admission: 08/25/19 Attend Phys: Keshav Dwyer, Discharge: Date of : 36 Report #: [id number] calcification Mild to moderate mitral regurgitation. No evidence of mitral valve stenosis. The tricuspid valve is normal in structure. There is mild tricuspid regurgitation. Estimated PAP 42 mmHg. There is moderate pulmonary hypertension. The pulmonary valve is normal in structure. Trace pulmonic regurgitation. There is no pericardial effusion. <ELECTRONICALLY SIGNED> By: Jorge Mcclellan MD 08/25/19 1328 1328 1328 Jorge Mcclellan MD /INF
== END ==
LOC: CV 10:48
DX: I08.3 Combined rheumatic disorders of mitral, aortic and tricuspid valves (principal)

== ENCOUNTER → 2020-05-27 | Outpatient (CLI) | payer OTHER ==
[~2020-05-27] MED LIST changes: +ASPIR 8181 MG PO; +PLAVIX 75 MG TA75 MG PO
== END ==
LOC: SJCVCIMAG 11:53 → SJCVC 12:04
PROVIDERS: ATTEND Internal Medicine Cardiovascular Disease
DX: I73.9 Peripheral vascular disease, unspecified (principal); I82.601 Acute embolism and thrombosis of unspecified veins of right upper extremity; I10 Essential (primary) hypertension; E78.00 Pure hypercholesterolemia, unspecified; Z79.899 Other long term (current) drug therapy

== ENCOUNTER 2020-05-31 06:54 | Observation (INO) | payer OTHER ==
[2020-05-31] VITALS (14 sets, daily range): BP systolic 95–151; BP diastolic 36–82
[~2020-05-31] VITALS: Ht 160 cm; Wt 96.8 kg
--- NOTE | ~2020-05-31 | H ---
[facility] [place] [address] HISTORY AND PHYSICAL Name: LIANG CAMARA Room #: 203-P [facility] MAzaelRAzael#: [id number] Admission: 05/31/20 Attend Phys: Waldo Burnham MD, Discharge: Date of : 38 Report #: [id number] THIS REPORT FOR: cc: Keshav Dwyer MD, Neal A. MD Mancuso, Gerald M. MD [facility] ~ DATE OF SERVICE: 05/31/2020 HISTORY OF PRESENT ILLNESS: The patient is an 79-year-old female, a patient of Dr. Keshav Dwyer. Admitted for possible peripheral and coronary intervention. History of right upper extremity embolism, apparently the fourth and digits since March, felt to have an embolic origin of some ischemic changes. There was felt to be high-grade disease in the right innominate and proximal subclavian, which may be the source of the emboli. Had been treated with a DOAC. This has been held for the procedure. Also with recurrent complaints of chest pain and pressure. A remote cardiac catheterization was done in 2011, which had a LAD stent placed at that time and extensively calcified vessel. There is also a circumflex lesion at that point. Drug-eluting stents were placed into the mid circumflex lesion and into the proximal mid LAD lesion at that setting. Her current medications have been Eliquis, which was held, atorvastatin 10, albuterol inhalers, Benadryl, Colace, Atarax, DuoNeb, levothyroxine, Ativan, oxybutynin, potassium, prednisone p.r.n., torsemide 20, valsartan 320, vitamin D. PAST MEDICAL HISTORY: Positive for coronary artery disease with stents as stated above, COPD, prior tobacco use, biventricular ICD placement in 2016, cardiomyopathy, history of uterine cancer, DJD, hypercholesterolemia, atrial fibrillation. SOCIAL HISTORY: She is accompanied by her daughter. Long of history of tobacco use. No current alcohol; 65 pack years, quit 2 years ago. FAMILY HISTORY: Positive for coronary artery disease with her mother and father both having heart attack and strokes and heart failure. REVIEW OF SYSTEMS: Negative except for stated above, just chronic chest pain, shortness of breath and some exertional component to the chest pain, she states. PHYSICAL EXAMINATION: VITAL SIGNS: Blood pressure 146/90, pulse 80s. HEENT: Eyes reveal xanthelasmas. Pharynx is clear. NECK: Shows preserved upstrokes without JVD or bruits. LUNGS: Clear, prolonged expiration phase. [facility] [address] [place] [address] HISTORY AND PHYSICAL Name: LIANG CAMARA Room #: 203-P [facility] M.R.#: [id number] Admission: 05/31/20 Attend Phys: Waldo Burnham MD, Discharge: Date of : 38 Report #: [id number] CARDIOVASCULAR: Distant heart tones, S1, S2, tachycardic, irregular. An EKG irregular rhythm, S1, S2. ABDOMEN: Soft. EXTREMITIES: Reveal there are some ischemic changes of the distal right fifth finger and less noted on the fourth digit. Diminished pulses. NEUROLOGIC: Intact. MUSCULOSKELETAL: Generalized arthritic changes. ASSESSMENT: 1. Peripheral vascular disease with showering embolic event to right hand area with ischemic finger, possible due to the stenosis in the right subclavian innominate. 2. Coronary artery disease with prior stents, now with recurrent angina. 3. Ischemic cardiomyopathy with a history of ICD placement. 4. Hypertension. 5. Hypercholesterolemia. 6. Chronic obstructive pulmonary disease with 60-70 pack year history. 7. History of uterine cancer. 8. Hypercholesterolemia. RECOMMENDATIONS AND PLAN: Proceed to catheterization lab to delineate anatomy as well as peripherally to intervene in the subclavian innominate stenosis. It sounds like there is also anginal issues, possible coronary intervention. Risks, benefits, alternatives were discussed with the patient and her daughter. We will follow with you. Thank you for asking me to assist in the care of this patient. By: 1403 1425 Waldo Burnham MD, FACC /nt
[~2020-05-31 06:54] MED LIST changes: -ASPIR 8181 MG PO; -PLAVIX 75 MG TA75 MG PO
[2020-05-31 07:35] LABS: HEMATOCRIT 37.3 % (37.0-47.0); HEMOGLOBIN 12.1 gm/dL (12.0-15.0); MCH 28.4 pg (26.0-34.0); MCHC 32.5 g/dL (28.0-37.0); MCV 87.5 fL (80.0-100.0); RBC 4.27 mil/uL (4.20-5.00); RDW 15.1 % (10.5-14.5); WBC 10.3 thou/uL (4.0-11.0)
[2020-05-31 07:41] LABS: CALCIUM 11.2 mg/dL (8.5-10.1); CREATININE 1.9 mg/dL (0.6-1.0); POTASSIUM 4.3 mmol/L (3.5-5.1)
[2020-05-31] MEDS ORDERED: PLAVIX 75 MG TA75 MG PO (12:01)
--- NOTE | 2020-05-31 17:49 | CATHLAB ---
[facility] [place] [address] INVASIVE PROCEDURE REPORT Name: LIANG CAMARA Room #: 203-P [facility] Mary MKimberly#: [id number] Admission: 05/31/20 Attend Phys: Waldo Burnham MD, Discharge: Date of : 36 Report #: [id number] THIS REPORT FOR: cc: Keshav Dwyer MD, Neal A. MD Mancuso, Gerald M. MD [facility] ~ APPROVED REPORT Study performed: 05/31/2020 09:56:33 Patient Details Patient Status: Out-Patient Room #: The patient is a 79 year-old female Event Personnel Waldo Burnham Educational Paraprofessional, Adelaide Oscar RN RN, Farooq Calloway RTR Scrub, Cesario Mazariegos RTR Monitor, Rui Ma RN process control supervisor Performed Left Heart Cath w/or w/o Coronaries [id number] [facility] [address]196 Initial Mod Sed Same Phys/QHP Gr5y [id number] Mod Sed Same Phys/QHP Ea [id number] Hemostasis w/ Mynx Indication Chest pain Procedure Narrative The was infiltrated with 1% Lidocaine subcutaneous anesthesia. A PINNACLE 6FR Sheath #[id number] sheath was inserted into the RFA^. Coronary angiography was performed using coronary diagnostic catheters. The right coronary system was accessed and visualized with a JR4 catheter. The left coronary system was accessed and visualized with a JL4 catheter. The left ventricle was accessed and visualized with a PIGTAIL catheter. Left ventriculogram was performed in 30 degree projection. Closure device was deployed with a 6 Fr MYNXGRIP 6/7F #[id number]. The patient tolerated the procedure well and there were no complications associated with the procedure. There was no hematoma. Intraoperative Conscious Sedation Sedation start time: 817 Case end Time: 1123 Fentanyl 175 mcg Versed 2.0 mg CASE TIME, SEDATION TOTALS, CONTRAST AMOUNTS, AND FLUORO TIME ARE ALL [facility] [place] [address] INVASIVE PROCEDURE REPORT Name: LIANG CAMARA Room #: 203-P [facility] IN M.R.#: [id number] Admission: 05/31/20 Attend Phys: Waldo Burnham, Discharge: Date of : 38 Report #: [id number] FROM A COMBO CASE WITH DR PACHECO Fluoro Time: 26.90 minutes Dose: DAP 12139.90 cGycm2 3683 mGy Contrast Type and Amount: Visipaque 183 ml Hemodynamics The aortic pressure is 190/73 mmHg with a mean of mmHg. The left ventricular pressure is 203/6 mmHg with a mean of mmHg. The left ventricular end diastolic pressure is 27 mmHg. PCI Technique Lesion Percutaneous coronary intervention was performed on the Right subclavian. A 6FR LAUNCHER EBU 3.0 #[id number] Guide Catheter was used to engage the ostium. A Luge Wire .014 x 182CM #[id number] Interventional Guidewire was used to cross the lesion. STENT DEPLOYMENT A drug-eluting stent RESOLUTE MARTINE OTW 3.5 X 15 #[id number] was inserted and inflated up to 17atm for 32seconds. POST STENT DEPLOYMENT BALLOON DILATION A Balloon catheter TREK NC OTW 2.5 X 15 #[id number] was inserted and inflated up to 20atm for 24seconds. Additional Inflation: 10atm for 5seconds. Additional Inflation: 22atm for 31seconds. ADDITIONAL INFLATION 22 MT FOR 20 SECS PCI Technique Lesion 2 Percutaneous Coronary Intervention was performed on the mid left anterior descending artery segment. Conclusion #1. Successful PTCA stent of a mid LAD 80% moderately calcified lesion to 0% placement of a 2.5 x 15 resolute drug-eluting stent postdilated high-pressure noncompliant balloon to 2.4 mm MARLENE grade III flow. Moderately diseased distal vessel #2 moderate calcification involving left main with 3040% ostial disease giving rise to LAD and circumflex. #3 ostial circumflex 30 to 40% then a previously placed stent widely patent diffuse distal disease in the OM system which is relatively small in distribution. #4 large dominant ectatic right coronary artery. Ostial disease of 40 to 50% mid vessel 40 to 50% filling a diffusely diseased and large PDA STEVEN system. #5 hemodynamics were performed with left ventricular pressures but no LV gram performed noninvasively EF was reported to 50% [facility] [address] [place] [address] INVASIVE PROCEDURE REPORT Name: LIANG CAMARA Room #: 203-P [facility] IN M.R.#: [id number] Admission: 05/31/20 Attend Phys: Waldo Burnham, Discharge: Date of : 38 Report #: [id number]. Recommendations and plan: Continue aggressive risk factor modification. Dual antiplatelet therapy has been initiated. Transferred to CCU to follow post coronary stent protocol. Will follow the other moderate disease as stated above. <ELECTRONICALLY SIGNED> By: Waldo Burnham MD, FACC 05/31/201747 47 47 Waldo Burnham MD, FACC /INF
--- NOTE | 2020-05-31 18:52 | NUR ---
PT WAS ADMITTED WITH HELP OF DAUGHTER (HENRRY). R GROIN SITE INTACT, NO HEMATOMA PRESENT. PT WAS SOB WITH ACTIVIRT AND AT REST. PRN ANXIETY MED GIVEN. A PACED ON MONITOR. PRN PAIN MED GIVEN WITH PARTIAL RELIEF. FALL PROTOCOLS IMPLEMENTED. NO CONCERNS AT THIS TIME.
[2020-06-01 00:32] VITALS: BP 129/55
[2020-06-01 02:30] LABS: HEMATOCRIT 35.7 % (37.0-47.0); HEMOGLOBIN 11.5 gm/dL (12.0-15.0); MCH 28.4 pg (26.0-34.0); MCHC 32.3 g/dL (28.0-37.0); MCV 88.1 fL (80.0-100.0); RBC 4.06 mil/uL (4.20-5.00); RDW 15.1 % (10.5-14.5); WBC 8.6 thou/uL (4.0-11.0)
[2020-06-01 02:43] LABS: ALBUMIN 2.8 g/dL (3.4-5.0); CALCIUM 9.7 mg/dL (8.5-10.1); CREATININE 1.6 mg/dL (0.6-1.0); POTASSIUM 4.1 mmol/L (3.5-5.1); TOTAL BILIRUBIN 0.5 mg/dL (0.2-1.0)
[2020-06-01 02:46] LABS: TROPONIN-I 0.84 ng/mL (<0.06)
[2020-06-01 03:30] VITALS: BP 123/52
--- NOTE | 2020-06-01 04:29 | NUR ---
Assumed pt care at 1900. P is alert but forgetful No sign of distress noted in pt. Pt is stable. Fall precaution in place. Pt verbalizes pain to right finger. Pain med administered. Assessment completed and documented. No acute event overnight. Right groin site is intact. Pending discharge. No further needs at this time.
[2020-06-01] MEDS ORDERED: ASPIR 8181 MG PO (08:07)
[2020-06-01 08:54] VITALS: BP 128/89
[2020-06-01 12:03] VITALS: BP 128/89
--- NOTE | 2020-06-01 16:08 | NUR ---
ASSESSMENT CHARTED - MEDS PER AUG - PT UP TO THE CHAIR AND THE BATHROOM WITH MIN ASSIST. MARYANNE DIET AND FLUIDS. NO CO'S OF PAIN OR NAUSEA. GROIN SITE C/D/I. PT HOME THIS AM - INSTRUCTION RE HOME CARE AND FOLLOW UP AND GROIN CARE GIVEN TO DAUGHTER. STATED UNDERSTANDING OF INSTRCUTION GIVEN. NO CO'S AT TIME OF D/C.
--- NOTE | 2020-06-02 13:19 | EKG ---
[facility] [place] [place] [address] ELECTROCARDIOGRAM REPORT Name: LIANG CAMARA Room #: 203-P [facility] Mary MAzaelRAzael#: [id number] Admission: 05/31/20 Attend Phys: Waldo Burnham MD, Discharge: 06/01/20 Date of : 38 Report #: [id number] <ELECTRONICALLY SIGNED> By: Jorge Mcclellan MD 06/02/20 1319 0740 0740 Jorge Mcclellan MD /EPI
== END 2020-06-01 12:49 | disposition home or self-care (01) ==
LOC: CATH 06:54 → 2N 13:47 → CATH 15:36 → 2N 06-01 12:49
PROVIDERS: Nurse Practitioner Adult Health; ADMIT Internal Medicine Cardiovascular Disease; ATTEND Internal Medicine Cardiovascular Disease
DX: I25.10 Atherosclerotic heart disease of native coronary artery without angina pectoris (principal); I77.1 Stricture of artery; I10 Essential (primary) hypertension; E78.5 Hyperlipidemia, unspecified; I48.91 Unspecified atrial fibrillation; D68.69 Other thrombophilia; E78.00 Pure hypercholesterolemia, unspecified; J44.9 Chronic obstructive pulmonary disease, unspecified; Z79.82 Long term (current) use of aspirin; Z79.899 Other long term (current) drug therapy; Z87.891 Personal history of nicotine dependence

== ENCOUNTER → 2020-09-12 | Outpatient (CLI) | payer OTHER ==
[~2020-09-12] MED LIST changes: +ASPIR 8181 MG PO; +PLAVIX 75 MG TA75 MG PO
== END ==
LOC: HYPER 08:49
PROVIDERS: ATTEND Emergency Medicine Emergency Medical Services
DX: L98.492 Non-pressure chronic ulcer of skin of other sites with fat layer exposed (principal); I73.9 Peripheral vascular disease, unspecified; I77.1 Stricture of artery; I74.2 Embolism and thrombosis of arteries of the upper extremities; I25.10 Atherosclerotic heart disease of native coronary artery without angina pectoris; I48.91 Unspecified atrial fibrillation; I42.9 Cardiomyopathy, unspecified; E78.00 Pure hypercholesterolemia, unspecified; I10 Essential (primary) hypertension; J43.1 Panlobular emphysema; M79.644 Pain in right finger(s); Z85.3 Personal history of malignant neoplasm of breast; Z95.0 Presence of cardiac pacemaker; Z90.49 Acquired absence of other specified parts of digestive tract; Z95.828 Presence of other vascular implants and grafts; Z79.01 Long term (current) use of anticoagulants; Z87.891 Personal history of nicotine dependence; Z85.6 Personal history of leukemia; Z98.49 Cataract extraction status, unspecified eye

== ENCOUNTER → 2020-09-12 | Outpatient (CLI) | payer OTHER | LOC: SJCVCIMAG | PROVIDERS: ATTEND Internal Medicine Cardiovascular Disease | DX: I65.23 Occlusion and stenosis of bilateral carotid arteries (principal); M79.601 Pain in right arm; M79.89 Other specified soft tissue disorders; Z13.6 Encounter for screening for cardiovascular disorders; E78.00 Pure hypercholesterolemia, unspecified; I10 Essential (primary) hypertension; I77.1 Stricture of artery; I74.2 Embolism and thrombosis of arteries of the upper extremities; Z95.828 Presence of other vascular implants and grafts; Z79.82 Long term (current) use of aspirin; Z79.899 Other long term (current) drug therapy; Z87.891 Personal history of nicotine dependence ==

== ENCOUNTER → 2021-01-07 | Outpatient (CLI) | payer OTHER | LOC: HYPER 07:57 | PROVIDERS: ATTEND Specialist | DX: L98.492 Non-pressure chronic ulcer of skin of other sites with fat layer exposed (principal); L84 Corns and callosities; E78.00 Pure hypercholesterolemia, unspecified; E66.9 Obesity, unspecified; I73.9 Peripheral vascular disease, unspecified; I77.1 Stricture of artery; I74.2 Embolism and thrombosis of arteries of the upper extremities; I25.10 Atherosclerotic heart disease of native coronary artery without angina pectoris; I48.91 Unspecified atrial fibrillation; J43.1 Panlobular emphysema; I10 Essential (primary) hypertension; I42.9 Cardiomyopathy, unspecified; M79.644 Pain in right finger(s); F41.9 Anxiety disorder, unspecified; F32.9 Major depressive disorder, single episode, unspecified; Z85.6 Personal history of leukemia; Z79.01 Long term (current) use of anticoagulants; Z85.3 Personal history of malignant neoplasm of breast; Z87.891 Personal history of nicotine dependence; Z95.828 Presence of other vascular implants and grafts; Z95.0 Presence of cardiac pacemaker; Z90.49 Acquired absence of other specified parts of digestive tract; Z98.49 Cataract extraction status, unspecified eye; Z68.30 Body mass index [BMI] 30.0-30.9, adult ==

== ENCOUNTER → 2021-02-06 | Day surgery (SDC) | payer OTHER ==
[~2021-02-06] VITALS: Ht 152.4 cm; Wt 74.4 kg
[~2021-02-06] MED LIST changes: +BENZONATATE200 MG PO; +ELIQUIS5 MG PO; +LORAZEPAM 0.50.5 MG PO; +TYLENOL EXTRA500 MG PO; +VITAMIN D350 MC3 PO; +ZOLOFT 50 MG TA50 MG PO
--- NOTE | ~2021-02-06 | O ---
[facility] [place] [address] OPERATIVE REPORT Name: LIANG CAMARA Room #: REG [facility].#: [id number] Admission: 02/06/21 Attend Phys: Freida Vaca, Discharge: Date of : 38 Report #: [id number] THIS REPORT FOR: cc: Keshav Dwyer MD, Neal A. MD Deardorff,Freida Wall MD ~ DATE OF SERVICE: 02/06/2021 PREOPERATIVE DIAGNOSIS: Right small fingertip necrosis. POSTOPERATIVE DIAGNOSIS: Right small fingertip necrosis. PROCEDURE PERFORMED: Right small fingertip partial amputation through the mid P2 level. SURGEON: Freida Vaca MD. ANESTHESIOLOGIST: Local anesthesia. ESTIMATED BLOOD LOSS: Minimal. FINGER TOURNIQUET TIME: 12 minutes. COMPLICATIONS: None. CONDITION: Stable. DISPOSITION: To recovery room. INDICATIONS: The patient is an 80-year-old female with the above-mentioned diagnosis. She elects for operative treatment. The risks, benefits, alternatives and complications were discussed including but not limited to infection, wound healing problems or pain, damage to blood vessels or nerves. Informed consent was obtained. The patient's daughter was present at bedside as well. A timeout was taken and then under sterile conditions, 7 mL of a mixture of 0.25% Marcaine 1% lidocaine plain was injected in divided doses, both ____ and dorsally at the base of the right small finger. A total of 7 mL was used. She tolerated this well. DESCRIPTION OF PROCEDURE: The patient was brought over to the operating room and placed in the supine position. Right upper extremity was sterilely prepped and draped in the usual fashion. Final timeout was taken to verify correct patient, operative procedure, operative site, all concurred, a finger Tourni-Cot was applied and then dissection was carried down around the bone. The bone was visible on the volar most portion. The bone was rongeured back to the skin level. At this point, the bone was removed back to an area where the skin could [address] [address] OPERATIVE REPORT Name: LIANG CAMARA Room #: REG [facility].#: [id number] Admission: 02/06/21 Attend Phys: Freida Vaca, Discharge: Date of : 38 Report #: [id number] be closed. This would have resulted in a hook nail deformity and so the nail tissue was excised. The bone was then excised further leaving approximately 1/3 of the distal phalanx. I did not disturb the extensor or flexor tendon insertion points. The wound was then thoroughly irrigated. Careful attention was placed to sharply excise any nail tissue. The skin was then closed with 4-0 nylon suture. Detensioning sutures were used as the plan will be for the sutures to remain in place for approximately 4 weeks. The Tourni-Cot was removed. The finger was nice and pink with brisk capillary refill. The wound was dressed with Xeroform and sterile gauze. She was placed into a soft dressing with minimal compression. She tolerated the procedure well. All fingers were pink, brisk capillary refill at the conclusion of case after removal of the Tourni-Cot. All sponge and needle counts were correct. The patient transferred to postoperative recovery room in stable condition. By: 1546 1645 Freida Vaca MD /nt
[2021-02-06 13:50] LABS: CALCIUM 9.7 mg/dL (8.5-10.1); CREATININE 1.4 mg/dL (0.6-1.0); POTASSIUM 4.6 mmol/L (3.5-5.1)
[2021-02-06 14:05] VITALS: BP 141/61
[2021-02-06 17:01] VITALS: BP 141/61
== END | disposition home or self-care (01) ==
LOC: OR 06:53
PROVIDERS: ATTEND Orthopaedic Surgery Hand Surgery
DX: M87.044 Idiopathic aseptic necrosis of right finger(s) (principal); I11.0 Hypertensive heart disease with heart failure; I50.9 Heart failure, unspecified; I48.91 Unspecified atrial fibrillation; E78.00 Pure hypercholesterolemia, unspecified; J43.9 Emphysema, unspecified; G47.30 Sleep apnea, unspecified; F31.9 Bipolar disorder, unspecified; F41.9 Anxiety disorder, unspecified; Z98.890 Other specified postprocedural states; Z79.899 Other long term (current) drug therapy; Z20.822 Contact with and (suspected) exposure to COVID-19; Z87.891 Personal history of nicotine dependence; Z90.49 Acquired absence of other specified parts of digestive tract; Z98.51 Tubal ligation status; Z95.0 Presence of cardiac pacemaker; Z85.6 Personal history of leukemia; Z98.41 Cataract extraction status, right eye; Z98.42 Cataract extraction status, left eye
CPT/HCPCS: 50101; 50386; 56526; 57006; 57091

== ENCOUNTER 2021-03-01 15:56 | Emergency (ER) | payer OTHER ==
[~2021-03-01] VITALS: Ht 162.6 cm; Wt 69.8 kg
[2021-03-01 16:49] LABS: ABSOLUTE NEUTROPHILS 2.8 thou/uL (1.4-8.2); HEMATOCRIT 39.2 % (37.0-47.0); HEMOGLOBIN 12.9 gm/dL (12.0-15.0); LYMPHOCYTES 12.3 % (24.0-44.0); MCH 28.1 pg (26.0-34.0); MCHC 32.8 g/dL (28.0-37.0); MCV 85.7 fL (80.0-100.0); MONOCYTES 16.7 % (1.0-8.0); PLATELET COUNT 162 thou/uL (150-400); RBC 4.58 mil/uL (4.20-5.00); RDW 16.8 % (10.5-14.5); WBC 4.1 thou/uL (4.0-11.0)
[2021-03-01 16:53] LABS: CALCIUM 9.2 mg/dL (8.5-10.1); CREATININE 1.2 mg/dL (0.6-1.0); POTASSIUM 5.3 mmol/L (3.5-5.1)
[2021-03-01] MEDS ORDERED: TRAMADOL 50 MG50 MG PO (19:35)
[2021-03-01 19:45] VITALS: BP 171/65
--- NOTE | 2021-03-02 11:55 | EKG ---
[address] [address] ELECTROCARDIOGRAM REPORT Name: LIANG CAMARA [id number] Admission: 03/01/21 Attend Phys: Discharge: 03/01/21 Date of : 38 Report #: [id number] [facility] ED Test Date: 2021-03-01 Test Time: 17:07:47 Pat Name: LIANG CAMARA Department: Room: Gender: F Project Management Professional: BENIGNO : 1940 Requested By: Santiago Bradley Order Number: [id number] MD: John Menon Measurements Intervals Wallace Rate: 80 P: 0 WA: 139 QRS: -78 QRSD: 143 T: 60 QT: 397 QTc: 458 Interpretive Statements V paced rhythm compared to ECG 06/01/2020 07:40:17 No significant change Electronically Signed On 03-02-2021 11:55:36 CDT by John Menon [email or web address] <ELECTRONICALLY SIGNED> By: John Menon MD 03/02/21 1155 1707 1707 John Menon MD /EPI
== END 2021-03-01 19:54 | disposition home or self-care (01) ==
LOC: ER 15:56
PROVIDERS: Student in an Organized Health Care Education/Training Program
DX: S39.011A Strain of muscle, fascia and tendon of abdomen, initial encounter (principal); M79.645 Pain in left finger(s); I48.91 Unspecified atrial fibrillation; J44.9 Chronic obstructive pulmonary disease, unspecified; E78.00 Pure hypercholesterolemia, unspecified; F41.9 Anxiety disorder, unspecified; F32.9 Major depressive disorder, single episode, unspecified; I50.9 Heart failure, unspecified; I11.0 Hypertensive heart disease with heart failure; Z79.899 Other long term (current) drug therapy; Z90.49 Acquired absence of other specified parts of digestive tract; Z98.51 Tubal ligation status; Z87.891 Personal history of nicotine dependence; Z88.1 Allergy status to other antibiotic agents; Z88.8 Allergy status to other drugs, medicaments and biological substances; Z88.0 Allergy status to penicillin; Z88.5 Allergy status to narcotic agent; Z88.6 Allergy status to analgesic agent; Z88.2 Allergy status to sulfonamides; W13.2XXA Fall from, out of or through roof, initial encounter; Y92.89 Other specified places as the place of occurrence of the external cause; Y93.89 Activity, other specified; Y99.8 Other external cause status